=== PATIENT | male | born 1940 | race Caucasian/White ===

== ENCOUNTER 2019-04-04 08:39 | Day surgery (SDC) | payer MEDICARE, BC ==
[2019-04-04] MEDS ORDERED: Lidocaine 2% 5 ML SDV INJECT ONE ×2 (08:40)
[2019-04-04] MEDS ORDERED: Propofol 200 MG/20 ML SDV IV ONE (08:40)
[2019-04-04] MEDS ORDERED: Lactated Ringers 1,000 ML IV SCH (09:00)
[2019-04-04] MEDS ORDERED: Sodium Chloride 0.9% 10 ML Syringe FLUSH PRN (09:00)
--- NOTE | 2019-04-04 10:53 | PCM.OPNOTE ---
- General Post-Op/Procedure Note Date of Surgery/Procedure: 04/04/19 Operative Procedure(s): c scope with bx Findings: diverticulosis colon polyps transverse x2, sigmoid x Pre Op Diagnosis: screening Post-Op Diagnosis: diverticulosis. colon polyps transverse x2, sigmoid x Anesthesia Technique: MAC Primary Surgeon: Jersey Patterson Anesthesia Provider: Sonia Zuñiga Pathology: colon polyps transverse x2, sigmoid x Complications: None Condition: Good Free Text/Narrative:: see dictation
--- NOTE | 2019-04-04 14:43 | OR ---
DATE OF OPERATION: 04/04/2019 SURGEON: Jersey Patterson MD PROCEDURE PERFORMED: Colonoscopy and cold forceps biopsy. PREOPERATIVE DIAGNOSIS: Personal history of colon polyps. POSTOPERATIVE DIAGNOSES: Sigmoid diverticulosis, transverse colon polyps x2, and sigmoid polyps x1. INDICATIONS FOR PROCEDURE: This is a 78-year-old white male, referred for screening colonoscopy. He has a personal history of colon polyps, had an unexplained weight loss as well, and was offered and accepted colonoscopy. DESCRIPTION OF OPERATION: After an excellent IV sedation was administered, digital rectal exam was performed. No marked abnormality was noted. Flexible colonoscope was inserted and advanced to the cecum. Prep was excellent. The following findings were noted. Ascending colon, unremarkable. Transverse colon, at the distal transverse colon, 2 polypoid lesions biopsied with cold loop snare and sent for permanent. Descending colon, scattered diverticula. Sigmoid, scattered diverticula and small pedunculated polyp biopsied with cold biopsy forceps and sent for permanent. Rectum and anus, unremarkable. The patient tolerated the procedure well. Results will be sent by letter. /[id number] /MODL
== END 2019-04-04 11:18 | disposition home or self-care (01) ==
LOC: FB.SDS 08:39
PROVIDERS: ATTEND Surgery
DX: Z12.11 Encounter for screening for malignant neoplasm of colon (principal); K57.30 Diverticulosis of large intestine without perforation or abscess without bleeding; K63.5 Polyp of colon; R79.89 Other specified abnormal findings of blood chemistry; R63.4 Abnormal weight loss; I10 Essential (primary) hypertension; J44.9 Chronic obstructive pulmonary disease, unspecified; N40.0 Benign prostatic hyperplasia without lower urinary tract symptoms; F32.9 Major depressive disorder, single episode, unspecified; Z86.010 Personal history of colon polyps; Z79.899 Other long term (current) drug therapy; Z79.82 Long term (current) use of aspirin; Z87.891 Personal history of nicotine dependence
CPT/HCPCS: 45385; 88305; J2001; J2704; J7120; 00811-QZ

== ENCOUNTER 2019-04-17 07:54 | Day surgery (SDC) | payer MEDICARE, BC ==
[2019-04-17] MEDS ORDERED: Dexamethasone 4 MG/ML 5 ML MDV IVPUSH ONE (07:55)
[2019-04-17] MEDS ORDERED: Ketorolac 30 MG/ML SDV IVPUSH ONE (07:55)
[2019-04-17] MEDS ORDERED: Propofol 200 MG/20 ML SDV IV ONE (07:55)
[2019-04-17] MEDS ORDERED: fentaNYL 100 MCG/2 ML SDV IV ONE (07:55)
[2019-04-17] MEDS ORDERED: Succinylcholine 200 MG/10 ML MDV IV ONE (07:55)
[2019-04-17] MEDS ORDERED: Lidocaine 2% 5 ML SDV INJECT ONE (07:55)
[2019-04-17] MEDS ORDERED: Ondansetron 4 MG/2 ML SDV IVPUSH ONE (07:55)
[2019-04-17] MEDS ORDERED: Lactated Ringers 1,000 ML IV ONE (07:55)
[2019-04-17] MEDS ORDERED: Sodium Chloride 0.9% 10 ML Syringe FLUSH PRN (08:15)
[2019-04-17] MEDS ORDERED: cefOXitin 1 GM Vial IVPUSH ONE (08:15)
[2019-04-17] MEDS ORDERED: cefOXitin 1 GM in Sodium Chloride 0.9% 100 ML IV ONE (08:15)
[2019-04-17] MEDS ORDERED: Lactated Ringers 1,000 ML IV SCH (08:15)
[2019-04-17] MEDS ORDERED: Lidocaine 1% with EPINEPHrine 1:100,000 20 ML MDV INJECT ONE (10:22)
[2019-04-17] MEDS ORDERED: Bupivacaine 0.5% 30 ML SDV INJECT ONE (10:22)
[2019-04-17] MEDS ORDERED: Acetaminophen/HYDROcodone 325-5 MG Tab PO PRN (10:58)
--- NOTE | 2019-04-17 11:05 | PCM.OPNOTE ---
- General Post-Op/Procedure Note Date of Surgery/Procedure: 04/17/19 Operative Procedure(s): lap cholecystectomy Findings: critical view obtained Pre Op Diagnosis: sx gallstones Post-Op Diagnosis: sx gallstones without obstruction or gangrene Anesthesia Technique: General ET Tube, Local (7 ml 1 %lido with epi/0.5% buvipicaine) Primary Surgeon: Jersey Patterson Anesthesia Provider: Teo Dawkins Pathology: gallbladder and contents Complications: None Condition: Good Free Text/Narrative:: see dictation
--- NOTE | 2019-04-17 15:37 | OR ---
DATE OF OPERATION: 04/17/2019 SURGEON: Jersey Patterson MD PROCEDURE PERFORMED: Laparoscopic cholecystectomy. PREOPERATIVE DIAGNOSIS: Symptomatic cholelithiasis without obstruction or gangrene. POSTOPERATIVE DIAGNOSIS: Symptomatic cholelithiasis without obstruction or gangrene. PROCEDURE PERFORMED: Laparoscopic cholecystectomy. INDICATIONS FOR PROCEDURE: This is a 78-year-old white male with a history of right upper quadrant abdominal pain. Subsequent ultrasound demonstrated gallbladder packed with stones. No intraductal stones were noted in the common bile duct. He was offered and accepted a laparoscopic cholecystectomy. DESCRIPTION OF PROCEDURE: After an excellent general anesthetic was administered via endotracheal tube, the patient was prepped and draped in the usual sterile manner. A grand total of 10 mL of 1:1 mixture of 1% lidocaine with epinephrine and 0.5% bupivacaine was used to infiltrate our sites. We started by infiltrating an area just above the umbilicus. This was done to the length involved between the periumbilical area and what appeared to be where the gallbladder would be located. A small vertical incision was made. Two stay sutures were placed on either side of the midline fascia which was then elevated. The fascia was incised, and the abdominal cavity was entered. A 10.5- mm Vlad trocar was inserted. The patient's abdomen was then insufflated to 15 mmHg using carbon dioxide. Under direct visualization, three 5 mm ports were placed; one in the midline epigastrium below the sternum and two below the right costal margin at the proximal level of the midclavicular anterior axillary line. The trocars were then inserted. The gallbladder was grasped, retracted in a cephalad fashion. Blunt dissection was carried out dissecting some thin peritoneal attachments surrounding the infundibulum. Small bleeding points were controlled with electrocautery. After grasping the infundibulum, the cystic duct and cystic artery were dissected free. After obtaining the critical view, two clips were placed proximally, one distally on both of these structures and both of these structures were then transected. L hook cautery dissection was then carried out dissecting the gallbladder free from the underlying gallbladder fossa. There was some spillage of stones. We were able to pass the gallbladder into a specimen bag and remove it. The spilled stones were retracted with the stone forceps. The infundibulum was irrigated. Small bleeding points were controlled with electrocautery, and there was a small bleeding point on the omentum, which was clipped with two clips with good control. A piece of Nu-Knit was placed on the floor of the dissected area due to the friability of the tissue to ensure hemostasis. After assuring that there was no further bleeding, the trocars were removed under direct visualization and the pneumoperitoneum was released. The fascial defect in the periumbilical incision was closed with a [id number] 0 Vicryl and niki were used to close the skin. Needle, sponge, and instrument counts were reported as correct. The patient was taken to recovery room in good condition. /[id number] /MODL
== END 2019-04-17 13:18 | disposition home or self-care (01) ==
LOC: FB.SDS 07:54
PROVIDERS: ATTEND Surgery
DX: K80.10 Calculus of gallbladder with chronic cholecystitis without obstruction (principal); I10 Essential (primary) hypertension; J44.9 Chronic obstructive pulmonary disease, unspecified; F17.210 Nicotine dependence, cigarettes, uncomplicated; F41.9 Anxiety disorder, unspecified; N40.1 Benign prostatic hyperplasia with lower urinary tract symptoms; R35.0 Frequency of micturition; Z79.51 Long term (current) use of inhaled steroids; Z79.82 Long term (current) use of aspirin; Z79.899 Other long term (current) drug therapy
CPT/HCPCS: 00790; 47562; 94150; A9270; J0330; J0694; J1100; J1885; J2001; J2405; J2704; J3010; J3490; J7120; 88304